=== PATIENT | female | born 1940 | race Caucasian/White ===

== ENCOUNTER 2021-06-03 14:03 | Emergency (ER) | payer MEDICARE ==
[2021-06-03] MEDS ORDERED: SENOKOT-S TABL1 EACH PO (18:20)
[2021-06-03] MEDS ORDERED: ZOFRAN ODT 4 MG4 MG PO (18:20)
[2021-06-03] MEDS ORDERED: PERCOCET 7.5-31 EACH PO (18:20)
== END 2021-06-03 18:35 | disposition home or self-care (01) ==
LOC: ER1 14:03
DX: S52.611A Displaced fracture of right ulna styloid process, initial encounter for closed fracture (principal); S52.501A Unspecified fracture of the lower end of right radius, initial encounter for closed fracture; I10 Essential (primary) hypertension; Z79.82 Long term (current) use of aspirin; W19.XXXA Unspecified fall, initial encounter
CPT/HCPCS: 29125; 73090; 73110; 96374; 96375; 99283; J2270; J2405